=== PATIENT | female | born 1950 | race Two or more races ===

== ENCOUNTER 2019-01-10 08:09 | Day surgery (SDC) | payer OTHER | END 2019-01-10 11:10 | disposition home or self-care (01) | LOC: FASU 08:09 ==

== ENCOUNTER → 2019-05-16 | Day surgery (SDC) | payer OTHER ==
[2019-05-10 10:29] VITALS: BMI 27.1
[~2019-05-16] MED LIST: ACETAMINOPHEN 325 MG TABLET (FP) PO PRN; BSS (NA/CA/MG/K) BALANCED SALT SOLUTION OPHTH SOLN 15 ML BOTTLE ONE; CARBACHOL 0.01% INTRA-OCULAR 1.5 ML VIAL ONE; LACTATED RINGERS SOLUTION 1,000 ML IV SCH; LIDOCAINE 1% P/F 10 MG/ML VIAL ONE; MIDAZOLAM HCL 2 MG/2 ML SINGLE DOSE VIAL ONE; NEO/POLYMYX B SULF/DEXAMETH OPHTHALMIC 5ML BOTTLE ONE; ONDANSETRON 4 MG/2 ML VIAL IVPUSH PRN
[2019-05-16] MEDS: TROPICAMIDE 1% OPHTH SOLN 15 ML BOTTLE ONE ×3 (10:40→10:50)
[2019-05-16] MEDS: PHENYLEPHRINE 2.5% OPHTH SOLN 15 ML BOTTLE ONE ×3 (10:40→10:50)
[2019-05-16] MEDS: CYCLOPENTOLATE 2% OPHTH SOLN 2 ML BOTTLE ONE ×3 (10:40→10:50)
[2019-05-16] MEDS: CIPROFLOXACIN 0.3% EYE DROPS 5 ML BOTTLE ONE ×3 (10:40→10:50)
[2019-05-16 13:02] VITALS: TEMP 97.7
[2019-05-16 13:25] VITALS: BP 125/71; PULSE 60
== END | disposition home or self-care (01) ==
LOC: FASU 09:55
PROVIDERS: ATTEND Ophthalmology
PROC: 08RJ3JZ Replacement of Right Lens with Synthetic Substitute, Percutaneous Approach (ICD-10-PCS; principal; 2019-05-16 12:16)
DX: H26.8 Other specified cataract (principal)

== ENCOUNTER 2020-10-08 11:52 | Emergency (ER) | payer OTHER ==
[2020-10-08 12:03] VITALS: BP 141/84; PULSE 94; TEMP 99.3; BMI 26.6
== END 2020-10-08 13:37 | disposition home or self-care (01) ==
LOC: FER 11:52
DX: S62.102A Fracture of unspecified carpal bone, left wrist, initial encounter for closed fracture (principal); W19.XXXA Unspecified fall, initial encounter
CPT/HCPCS: 73110-TC-LT-FY; 99283-25

== ENCOUNTER 2021-06-20 15:07 | Emergency (ER) | payer OTHER ==
[2021-06-20] MEDS ORDERED: IBUPROFEN 400 MG TABLET (FP) PO ONE ×2 (16:00→16:04)
[2021-06-20] MEDS ORDERED: CYCLOBENZAPRINE HCL 5 MG TABLET PO ONE (16:00)
[2021-06-20] MEDS ORDERED: ACETAMINOPHEN 325 MG TABLET (FP) PO ONE (16:00)
[2021-06-20 16:02] VITALS: BP 158/76; PULSE 78; TEMP 97.8; BMI 27.9
[2021-06-20] MEDS ORDERED: ACETAMINOPHEN 325 MG TABLET (FP) ONE (16:05)
[2021-06-20] MEDS ORDERED: CYCLOBENZAPRINE HCL 10 MG TABLET (FP) ONE (16:05)
== END 2021-06-20 19:15 | disposition home or self-care (01) ==
LOC: FER 15:07
DX: M25.462 Effusion, left knee (principal)
CPT/HCPCS: 73562-TC-LT-FY; 93971-TC; 99284-25

== ENCOUNTER 2023-06-11 09:00 | Emergency (ER) | payer OTHER, MEDICARE ==
[2023-06-11] MEDS ORDERED: IBUPROFEN 400 MG TABLET (FP) PO ONE ×2 (09:16→09:22)
[2023-06-11 09:41] VITALS: BP 106/72; PULSE 82; RESP 16; TEMP 99.2; BMI 29.0
== END 2023-06-11 11:58 | disposition home or self-care (01) ==
LOC: FER 09:00
DX: M25.561 Pain in right knee (principal); S86.911A Strain of unspecified muscle(s) and tendon(s) at lower leg level, right leg, initial encounter; W18.39XA Other fall on same level, initial encounter
CPT/HCPCS: 73502-TC-RT-FY; 73560-TC-RT-FY; 99284-25